=== PATIENT | male | born 1995 ===

== ENCOUNTER 2021-06-07 07:21 | Inpatient (IN) | payer SELFPAY ==
[~2021-06-07] VITALS: Ht 170.2 cm; Wt 111.1 kg
[2021-06-07 08:04] LABS: BASOPHILS ABSOLUTE AUTO 0.01 K/mm3 (0.00-0.23); BASOPHILS PERCENT AUTO 0 % (0-2); EOSINOPHILS PERCENT AUTO 0 % (0-6); Hematocrit 49.2 % (37.0-53.0); Hemoglobin 16.4 g/dL (13.5-17.5); IMMATURE GRAN ABSOLUTE AUTO 0.03 K/mm3 (0.00-0.10); IMMATURE GRAN PERCENT AUTO 0 % (0-1); LYMPHOCYTES ABSOLUTE AUTO 1.51 K/mm3 (0.84-5.20); LYMPHOCYTES PERCENT AUTO 19 % (21-46); MONOCYTES ABSOLUTE AUTO 0.45 K/mm3 (0.16-1.47); MONOCYTES PERCENT AUTO 6 % (4-13); Mean Corpuscular HGB 27.1 pg (26.0-34.0); Mean Corpuscular HGB Conc 33.3 g/dL (31.5-36.5); Mean Corpuscular Volume 81 fL (80-100); Mean Platelet Volume 11.4 fL (9.1-12.4); NEUTROPHILS ABSOLUTE AUTO 5.92 K/mm3 (1.96-9.15); NEUTROPHILS PERCENT AUTO 75 % (41-73); Platelet Count 137 K/mm3 (150-400); RDW Coefficient Variation 12.6 % (11.7-14.2); RDW Standard Deviation 37.5 fL (35.1-46.3); Red Blood Cell Count 6.06 M/mm3 (4.30-5.90); White Blood Cell Count 7.92 K/mm3 (4.00-11.30)
[2021-06-07 08:27] LABS: Alanine Aminotransfer (ALT/SGP 86 U/L (12-78); Albumin, Blood 3.4 g/dL (3.4-5.0); Albumin/Globulin Ratio 0.7 (0.8-1.8); Alk Phos 73 U/L (50-136); Anion Gap 6 mmol/L (6-16); Aspartate Aminotrans (AST/SGOT 53 U/L (12-37); Bilirubin, Total 0.6 mg/dL (0.1-1.0); Blood Urea Nitrogen 13 mg/dL (8-24); Bun/Creatinine Ratio 11.2 (12.0-20.0); CO2, Blood 28 mmol/L (21-32); Calcium, Blood 8.8 mg/dL (8.5-10.1); Chloride, Blood 100 mmol/L (98-108); Creatinine, Blood 1.16 mg/dL (0.60-1.20); Globulin, Blood 4.8 g/dL (2.2-4.0); Glomerular Filtration Rate >60 (60-); Glucose, Blood 113 mg/dL (70-99); Sodium, Blood 134 mmol/L (136-145); Total Protein, Blood 8.2 g/dL (6.4-8.2)
--- NOTE | 2021-06-07 19:32 | NUR ---
SHIFT SUMMARY PT ADMITTED FOR COVID-19. SHORT OF BREATHE AND REQUIRING 2-4 LITERS O2 VIA NC. STAND BY ASSIST DUE TO WORK OF BREATHING. ABLE TO MAKE NEEDS KNOWN. WILL REPORT TO LUKE URIBE.
--- NOTE | 2021-06-08 02:51 | NUR ---
SIGNS AND DISPLAYS SALESPERSON SUMMARY PT A/O X4, SLEPT WELL TONIGHT. DENIES PAIN. CONTINUES TO BE ON 4L O2 VIA NC SATTING IN THE LOW TO MID 90'S. TELE READ SR IN THE HIGH 110'S. NO ACUTE CHANGES, CALL LIGHT WITHIN REACH, WILL CONTINUE TO MONITOR.
[2021-06-08 05:48] LABS: BASOPHILS ABSOLUTE AUTO 0.01 K/mm3 (0.00-0.23); BASOPHILS PERCENT AUTO 0 % (0-2); EOSINOPHILS PERCENT AUTO 0 % (0-6); Hematocrit 48.9 % (37.0-53.0); Hemoglobin 16.1 g/dL (13.5-17.5); IMMATURE GRAN ABSOLUTE AUTO 0.05 K/mm3 (0.00-0.10); IMMATURE GRAN PERCENT AUTO 1 % (0-1); LYMPHOCYTES ABSOLUTE AUTO 1.39 K/mm3 (0.84-5.20); LYMPHOCYTES PERCENT AUTO 14 % (21-46); MONOCYTES ABSOLUTE AUTO 0.61 K/mm3 (0.16-1.47); MONOCYTES PERCENT AUTO 6 % (4-13); Mean Corpuscular HGB 26.8 pg (26.0-34.0); Mean Corpuscular HGB Conc 32.9 g/dL (31.5-36.5); Mean Corpuscular Volume 81 fL (80-100); Mean Platelet Volume 11.7 fL (9.1-12.4); NEUTROPHILS ABSOLUTE AUTO 8.04 K/mm3 (1.96-9.15); NEUTROPHILS PERCENT AUTO 80 % (41-73); Platelet Count 192 K/mm3 (150-400); RDW Coefficient Variation 12.7 % (11.7-14.2); RDW Standard Deviation 37.8 fL (35.1-46.3); Red Blood Cell Count 6.01 M/mm3 (4.30-5.90)
[2021-06-08 06:01] LABS: International Normalized Ratio 1.01; Prothrombin Time Results 10.9 Sec (9.7-11.5)
[2021-06-08 06:17] LABS: Alanine Aminotransfer (ALT/SGP 78 U/L (12-78); Albumin, Blood 3.2 g/dL (3.4-5.0); Albumin/Globulin Ratio 0.6 (0.8-1.8); Alk Phos 67 U/L (50-136); Anion Gap 8 mmol/L (6-16); Aspartate Aminotrans (AST/SGOT 44 U/L (12-37); Bilirubin, Total 0.5 mg/dL (0.1-1.0); Blood Urea Nitrogen 15 mg/dL (8-24); Bun/Creatinine Ratio 16.3 (12.0-20.0); CO2, Blood 25 mmol/L (21-32); Calcium, Blood 9.1 mg/dL (8.5-10.1); Chloride, Blood 103 mmol/L (98-108); Creatinine, Blood 0.92 mg/dL (0.60-1.20); Globulin, Blood 5.1 g/dL (2.2-4.0); Glomerular Filtration Rate >60 (60-); Glucose, Blood 113 mg/dL (70-99); Magnesium, Blood 2.5 mg/dL (1.6-2.4); Potassium, Blood 4.1 mmol/L (3.5-5.5); Sodium, Blood 136 mmol/L (136-145); Total Protein, Blood 8.3 g/dL (6.4-8.2); Troponin I <0.015 ng/mL (0.000-0.040)
--- NOTE | 2021-06-08 08:29 | NUR ---
HR 130'S PER HEMODIALYSIS CHARGE NURSE HEART RATE SUSTAINING IN 130'S FOR SEVERAL HOURS. CALL TO DR. CAMPOS, INSTRUCTED TO INCREASE PATIENT OXYGEN FLOW AND ENCOURAGE PRONING.
--- NOTE | 2021-06-08 18:10 | NUR ---
SHIFT SUMMARY PATIENT MAINTAINING OXYGEN SATURATION AT 92% ON 10L/HI FLOW NC. PATIENT UP INDEPENDENT IN ROOM. ENCOURAGED TO PRONE AND DEEP BREATH. EATING AND DRINKING WELL. PLEASANT AND COOPERATIVE WITH CARE.
--- NOTE | 2021-06-09 04:46 | NUR ---
COMPLIANCE COORDINATOR SUMMARY PT A/O X4, SLEPT WELL TONIGHT. DENIED PAIN. CONTINUES TO BE ON 10L VIA OXYMIZER SATTING IN THE LOW TO MID 90'S. PER [employer] SALES AGENT PT HAS BEEN SR AVG MID 90'S BPM. VSS, NO ACUTE CHANGES. CALL LIGHT WTIHIN REACH, WILL CONTINUE TO MONITOR.
[2021-06-09 06:02] LABS: BASOPHILS ABSOLUTE AUTO 0.01 K/mm3 (0.00-0.23); BASOPHILS PERCENT AUTO 0 % (0-2); EOSINOPHILS PERCENT AUTO 0 % (0-6); Hemoglobin 14.7 g/dL (13.5-17.5); IMMATURE GRAN ABSOLUTE AUTO 0.03 K/mm3 (0.00-0.10); IMMATURE GRAN PERCENT AUTO 0 % (0-1); LYMPHOCYTES ABSOLUTE AUTO 1.06 K/mm3 (0.84-5.20); LYMPHOCYTES PERCENT AUTO 15 % (21-46); MONOCYTES ABSOLUTE AUTO 0.68 K/mm3 (0.16-1.47); MONOCYTES PERCENT AUTO 10 % (4-13); Mean Corpuscular HGB Conc 32.7 g/dL (31.5-36.5); Mean Corpuscular Volume 83 fL (80-100); Mean Platelet Volume 10.8 fL (9.1-12.4); NEUTROPHILS ABSOLUTE AUTO 5.35 K/mm3 (1.96-9.15); NEUTROPHILS PERCENT AUTO 75 % (41-73); Platelet Count 216 K/mm3 (150-400); RDW Coefficient Variation 12.6 % (11.7-14.2); Red Blood Cell Count 5.45 M/mm3 (4.30-5.90); White Blood Cell Count 7.13 K/mm3 (4.00-11.30)
[2021-06-09 06:40] LABS: Alanine Aminotransfer (ALT/SGP 57 U/L (12-78); Albumin, Blood 2.8 g/dL (3.4-5.0); Albumin/Globulin Ratio 0.6 (0.8-1.8); Alk Phos 57 U/L (50-136); Anion Gap 6 mmol/L (6-16); Aspartate Aminotrans (AST/SGOT 29 U/L (12-37); Bilirubin, Total 0.4 mg/dL (0.1-1.0); Blood Urea Nitrogen 18 mg/dL (8-24); CO2, Blood 28 mmol/L (21-32); Calcium, Blood 8.7 mg/dL (8.5-10.1); Chloride, Blood 104 mmol/L (98-108); Creatinine, Blood 0.95 mg/dL (0.60-1.20); Globulin, Blood 4.6 g/dL (2.2-4.0); Glomerular Filtration Rate >60 (60-); Glucose, Blood 109 mg/dL (70-99); Potassium, Blood 4.3 mmol/L (3.5-5.5); Sodium, Blood 138 mmol/L (136-145); Total Protein, Blood 7.4 g/dL (6.4-8.2)
--- NOTE | 2021-06-10 17:42 | NUR ---
SHIFT SUMMARY: TOLERATING WEANING. ON 4L NC AT THIS TIME. INDEP IN ROOM. LAST DOSE OF REMDESIVIR TOMORROW AFTERNOON. HOPING TO GO HOME TOMORROW.
--- NOTE | 2021-06-11 09:00 | NUR ---
HOME O2 EVAL. 88% ON RA AT REST, PULSE 100. 91% ON 1L AT REST, PULSE 107. 3L NC WITH ACTIVITY, 90%, PULSE 115.
[2021-06-11] MEDS ORDERED: ASCO500 PO (12:11)
[2021-06-11] MEDS ORDERED: ACET325 PO (12:11)
[2021-06-11] MEDS ORDERED: AZIT500 PO (12:12)
[2021-06-11] MEDS ORDERED: AZO CRANBERRY PO (12:12)
[2021-06-11] MEDS ORDERED: CEFP200 PO (12:12)
[2021-06-11] MEDS ORDERED: DECADRON6 M2 PO (12:13)
[2021-06-11] MEDS ORDERED: MELATONIN5 M1 PO (12:13)
[2021-06-11] MEDS ORDERED: OMEP20ER PO (12:14)
[2021-06-11] MEDS ORDERED: VITAMIN D31000 UNI1 PO (12:14)
[2021-06-11] MEDS ORDERED: ZINC220 PO (12:15)
== END 2021-06-11 14:08 | disposition home or self-care (01) | DRG 177 ==
LOC: ER 07:21 → MEDS 10:43
PROVIDERS: Emergency Medicine; Family Medicine; ADMIT Family Medicine
PROC: 8E0ZXY6 Isolation (ICD-10-PCS; principal; 2021-06-07)
PROC: XW033E5 Introduction of Remdesivir Anti-infective into Peripheral Vein, Percutaneous Approach, New Technology Group 5 (ICD-10-PCS; 2021-06-07)
PROC: 3E0333Z Introduction of Anti-inflammatory into Peripheral Vein, Percutaneous Approach (ICD-10-PCS; 2021-06-07)
DX: U07.1 COVID-19 (principal); J96.01 Acute respiratory failure with hypoxia; J12.82 Pneumonia due to coronavirus disease 2019; R65.11 Systemic inflammatory response syndrome (SIRS) of non-infectious origin with acute organ dysfunction; E87.1 Hypo-osmolality and hyponatremia; F41.9 Anxiety disorder, unspecified; K21.9 Gastro-esophageal reflux disease without esophagitis; G47.00 Insomnia, unspecified; E66.01 Morbid (severe) obesity due to excess calories; Z68.38 Body mass index [BMI] 38.0-38.9, adult
CPT/HCPCS: 36415; 71045; 71260; 80053; 82947; 83605; 83735; 84145; 84484; 85025; 85379; 85610; 86140; 93005; 93010; 96374-59; 96375-59; 99285-25; A9270; J0696; J1100; J1650; J2060; J2550; J7050; Q9967

== ENCOUNTER 2024-05-25 07:28 | Inpatient (IN) | payer SELFPAY ==
[~2024-05-25] VITALS: Ht 170.2 cm; Wt 116.1 kg
[2024-05-25] VITALS (17 sets, daily range): BP systolic 118–137; BP diastolic 74–93
[~2024-05-25 07:28] MED LIST: ACET325 PO; AMOCLA875 PO; ASCO500 PO; AZIT500 PO; AZO CRANBERRY PO; CEFP200 PO; DECADRON6 M2 PO; MELATONIN5 M1 PO; OMEP20ER PO; VISBIOME 112.51 EACH PO; VITAMIN D31000 UNI1 PO; ZINC220 PO
[2024-05-25] MEDS ORDERED: Ondansetron HCl 2 MG / ML 2ML Vial IV ONE (07:50)
[2024-05-25] MEDS ORDERED: NS 1,000 ML IV SCH ×3 (07:50→11:40)
[2024-05-25] MEDS ORDERED: HYDROmorphone HCl/Pf 1MG SYR IV ONE ×2 (07:50→09:20)
[2024-05-25] MEDS ORDERED: Piperacillin/Tazobactam Sod 4.5 GM in NS 100 ML IV ONE (07:55)
[2024-05-25 08:06] LABS: BASOPHILS ABSOLUTE AUTO 0.03 K/mm3 (0.00-0.23); BASOPHILS PERCENT AUTO 0 % (0-2); EOSINOPHILS ABSOLUTE AUTO 0.11 K/mm3 (0.00-0.68); EOSINOPHILS PERCENT AUTO 1 % (0-6); Hematocrit 48.5 % (37.0-53.0); Hemoglobin 16.2 g/dL (13.5-17.5); IMMATURE GRAN ABSOLUTE AUTO 0.04 K/mm3 (0.00-0.10); IMMATURE GRAN PERCENT AUTO 0 % (0-1); LYMPHOCYTES ABSOLUTE AUTO 2.04 K/mm3 (0.84-5.20); LYMPHOCYTES PERCENT AUTO 15 % (21-46); MONOCYTES ABSOLUTE AUTO 0.63 K/mm3 (0.16-1.47); MONOCYTES PERCENT AUTO 5 % (4-13); Mean Corpuscular HGB 27.3 pg (26.0-34.0); Mean Corpuscular HGB Conc 33.4 g/dL (31.5-36.5); Mean Corpuscular Volume 82 fL (80-100); Mean Platelet Volume 10.2 fL (9.1-12.4); NEUTROPHILS ABSOLUTE AUTO 11.05 K/mm3 (1.96-9.15); NEUTROPHILS PERCENT AUTO 80 % (41-73); Platelet Count 216 K/mm3 (150-400); RDW Standard Deviation 38.2 fL (35.1-46.3); Red Blood Cell Count 5.93 M/mm3 (4.30-5.90)
[2024-05-25 08:31] LABS: Albumin, Blood 4.1 g/dL (3.4-5.0); Bilirubin, Total 0.5 mg/dL (0.1-1.0); Bun/Creatinine Ratio 13.6 (12.0-20.0); Calcium, Blood 9.4 mg/dL (8.5-10.1); Creatinine, Blood 0.88 mg/dL (0.60-1.20); Globulin, Blood 4.3 g/dL (2.2-4.0); Potassium, Blood 3.9 mmol/L (3.5-5.5); Total Protein, Blood 8.4 g/dL (6.4-8.2)
[2024-05-25] MEDS ORDERED: DiphenhydrAMINE HCL 25 MG Cap PO PRN (10:00)
[2024-05-25] MEDS ORDERED: Acetaminophen 325 MG TABLET PO PRN (10:00)
[2024-05-25] MEDS ORDERED: Bisacodyl 10 MG Supp PR PRN (10:00)
[2024-05-25] MEDS ORDERED: Naloxone HCl 0.4MG / ML 1ML Vial IV PRN (10:00)
[2024-05-25] MEDS ORDERED: Magnesium Hydroxide Conc 10 ML UDC PO PRN (10:05)
[2024-05-25] MEDS ORDERED: Ondansetron HCl 2 MG / ML 2ML Vial IV PRN (10:05)
[2024-05-25] MEDS ORDERED: OxyCODONE HCL 5 MG TAB PO PRN (10:05)
[2024-05-25] MEDS ORDERED: Zolpidem Tartrate 5 MG Tab PO PRN (10:05)
[2024-05-25] MEDS ORDERED: Morphine Sulfate 4 MG/1 ML Injection IV PRN (10:05)
[2024-05-25] MEDS ORDERED: Metoclopramide HCl 5MG / ML 2ML Vial IV PRN (10:05)
[2024-05-25] MEDS ORDERED: HYDROmorphone HCl/Pf 1MG SYR IV PRN (13:30)
[2024-05-25] MEDS ORDERED: Lactated Ringer's 1,000 ML IV SCH (13:35)
[2024-05-25] MEDS ORDERED: Bupivacaine 0.5% HCl 5 MG/ML 30MLVIAL ONE (13:53)
[2024-05-25] MEDS ORDERED: Ondansetron HCl 2 MG / ML 2ML Vial ONE (13:59)
[2024-05-25] MEDS ORDERED: Rocuronium Bromide 10 MG/ML 5ML Injection IV ONE ×3 (13:59→16:56)
[2024-05-25] MEDS ORDERED: Dexamethasone Sod Phos 10 MG/ML 1ML VIAL ONE (13:59)
[2024-05-25] MEDS ORDERED: Piperacillin/Tazobactam Sod 4.5 GM in NS 100 ML IV SCH (14:00)
[2024-05-25] MEDS ORDERED: Lidocaine HCl 2% 20 ML MDV ONE (14:00)
[2024-05-25] MEDS ORDERED: Esmolol HCL 10 MG/ML 10ML VIAL ONE (14:00)
[2024-05-25] MEDS ORDERED: Metoprolol Tartrate 5 ML IV ONE (14:03)
--- NOTE | 2024-05-25 14:03 | NUR ---
PT HAS 18G IV TO RIGHT AC THAT FLUSHES WELL. PT ALSO HAS 18G IV TO LEFT FOREARM THAT FLUSHES WELL AND FLOWS TO GRAVITY.
[2024-05-25] MEDS ORDERED: Midazolam HCL 1 MG/ML 5MLVIAL ONE (14:16)
[2024-05-25 14:21] LABS: Base Excess Venous -3.2 mmol/L; PCO2 Venous 39.6 mmHg (38-42); pH Blood Venous 7.36 (7.34-7.37)
--- NOTE | 2024-05-25 14:23 | NUR ---
PERSONAL BELONGINGS PLACED UNDERNEATH GURNEY FOR SAFEKEEPING. PT RING AND PHONE PLACED IN PACU FOR SAFEKEEPING.
[2024-05-25] MEDS ORDERED: Piperacillin/Tazobactam Sod 4.5 GM ONE (14:53)
[2024-05-25] MEDS ORDERED: FentaNYL Citrate 50 MCG/ML 2 ML Injection ONE (15:18)
[2024-05-25] MEDS ORDERED: propofoL 20 ML IV ONE (15:19)
[2024-05-25] MEDS ORDERED: Sugammadex Sodium 200 MG/2ML SDV (100 MG/ML) ONE (16:08)
[2024-05-25] MEDS ORDERED: HYDROmorphone HCl/Pf 1MG SYR ONE ×2 (16:08→16:43)
[2024-05-25] MEDS ORDERED: FentaNYL Citrate 50 MCG/ML 5 ML Injection ONE (16:47)
--- NOTE | 2024-05-25 20:12 | NUR ---
SHIFT/ARRIVAL SUMMARY PT ARRIVED TO THE FLOOR FROM PACU AROUND 1830, POST OP VITALS STARTED, OSTOMY APPLIANCE IN PLACE AND DOES NOT HAVE ANY DRAINAGE, STOMA IS VISIBLE THROUGH THE BAG AND IS RED AND BEEFY LOOKING, MIDLINE NISHA HAS SCANT SPOTTING ON THE INFERIOR SECTION OF IT BUT IS OTHERWISE COMPRESSED, ZORAIDA DRAIN IN PLACE RLQ WITH SMALL AMT OF SS CLOUDY DRAINAGE, DISCUSSED PLAN OF CARE WITH HIM FOCUSING ON CLOSE MONITORING AND POST OP VITALS AND GETTING ORDERED MEDS/TELE GOING FOR HIM. HE IS SOMNOLENT BUT WAKES EASILY TO VERBAL STIMULI, SPOKE WITH THE AND LET HER KNOW HE WAS OUT OF SURGERY AND ON THE UNIT IN HIS ROOM. REPORT GIVEN TO LUKE RN, FLUIDS STARTED AND TELE IN PLACE.
[2024-05-25] MEDS ORDERED: Docusate Sodium 100 MG Cap PO SCH (21:00)
[2024-05-25] MEDS ORDERED: Famotidine 10 MG/ML 2ML Vial IV SCH (21:00)
[2024-05-25] MEDS ORDERED: Lactobacil 2-S.Thermo-Bifido 1 1 Cap PO SCH (21:00)
--- NOTE | 2024-05-26 03:53 | NUR ---
SHIFT SUMMARY NOC. PT POD 1 FOR SIGMOID RESECTION WITH OSTOMY FORMATION. PT A/O X4. PT NPO STATUS. HERNANDEZ PATENT AND DRAINING TO GRAVITY. PT DENIES NEED FOR PAIN MEDICATION AND REPORTS PAIN 3-4/10. MIDLINE NISHA DRESSING HAS SEROSANG DRAINAGE OUTLINED. OSTOMY BEEFY RED WITH NO OUTPUT. ZORAIDA DRAIN PRODUCING SEROSANG DRAINAGE. PT ON TELEMETRY WITH NO REPORTED EVENTS. PT RRESTED WITH EYES CLOSED AND CALL LIGHT IN REACH.
[2024-05-26 04:40] VITALS: BP 128/78
[2024-05-26 05:05] LABS: BASOPHILS ABSOLUTE AUTO 0.03 K/mm3 (0.00-0.23); BASOPHILS PERCENT AUTO 0 % (0-2); EOSINOPHILS ABSOLUTE AUTO 0.01 K/mm3 (0.00-0.68); EOSINOPHILS PERCENT AUTO 0 % (0-6); Hematocrit 42.4 % (37.0-53.0); IMMATURE GRAN ABSOLUTE AUTO 0.15 K/mm3 (0.00-0.10); IMMATURE GRAN PERCENT AUTO 1 % (0-1); LYMPHOCYTES ABSOLUTE AUTO 1.13 K/mm3 (0.84-5.20); LYMPHOCYTES PERCENT AUTO 5 % (21-46); MONOCYTES ABSOLUTE AUTO 0.87 K/mm3 (0.16-1.47); MONOCYTES PERCENT AUTO 4 % (4-13); Mean Corpuscular HGB 27.5 pg (26.0-34.0); Mean Corpuscular Volume 83 fL (80-100); Mean Platelet Volume 10.9 fL (9.1-12.4); NEUTROPHILS ABSOLUTE AUTO 20.07 K/mm3 (1.96-9.15); NEUTROPHILS PERCENT AUTO 90 % (41-73); Platelet Count 153 K/mm3 (150-400); RDW Coefficient Variation 13.3 % (11.7-14.2); RDW Standard Deviation 40.4 fL (35.1-46.3); White Blood Cell Count 22.26 K/mm3 (4.00-11.30)
[2024-05-26 05:28] LABS: Albumin, Blood 2.9 g/dL (3.4-5.0); Albumin/Globulin Ratio 0.8 (0.8-1.8); Bilirubin, Total 1.5 mg/dL (0.1-1.0); Bun/Creatinine Ratio 10.7 (12.0-20.0); Calcium, Blood 8.4 mg/dL (8.5-10.1); Creatinine, Blood 0.93 mg/dL (0.60-1.20); Globulin, Blood 3.6 g/dL (2.2-4.0); Total Protein, Blood 6.5 g/dL (6.4-8.2)
[2024-05-26 05:54] LABS: BAND PERCENT MAN 3 % (0-8); BASOPHILS PERCENT MAN 0 % (0-2); EOSINOPHILS PERCENT MAN 0 % (0-6); LYMPHOCYTES % ATYPICAL MANUAL 1 % (0-0); LYMPHOCYTES ABSOLUTE MAN 1.11 K/mm3 (0.84-5.20); LYMPHOCYTES PERCENT MAN 4 % (21-46); MONOCYTES ABSOLUTE MAN 0.66 K/mm3 (0.16-1.47); MONOCYTES PERCENT MAN 3 % (4-13); NEUTROPHILS ABSOLUTE MAN 20.47 K/mm3 (1.96-9.15); SEG NEUTROPHILS PERCENT MAN 89 % (41-73); TOTAL CELLS COUNTED 100
[2024-05-26 07:09] VITALS: BP 132/92
[2024-05-26 14:18] VITALS: BP 145/96
--- NOTE | 2024-05-26 18:43 | NUR ---
PT HR RANGING 120-130 WHILE PT AT REST AND PAIN MANAGED. PT DENIES CP, FIG CAPRIFIER HARJEET REPORTS NO CHANGE IN RHYTHM. ALL OTHER VSS. DR. LEIVA NOTIFIED AT 11, SEE NEW ORDER FOR INCREASE IN FLUID RATE TO 150ML/HR. RATE INCREASED TO 150ML/HR AT 1130
--- NOTE | 2024-05-26 18:48 | NUR ---
SUMMARY: PT IS POD1 SIGMOID RESECTION WITH OSTOMY. A/O, HR CONTINUES TO RANGE 120-130, DR. LEIVA AWARE. OTHERWISE VSS. SURGICAL SITES WNL, TOTAL OUTPUT FROM ZORAIDA DRAIN 40ML RED DRAINAGE. NO GAS OR STOOL FROM STOMA THIS SHIFT. PT ENCOURAGED TO WALK AND DEEP BREATHE, PT UP TO CHAIR X2. MEDICATED FOR PAIN PER EMAR. PT IS VOIDING AND TOLERATING SMALL SIPS OF CLEAR LIQUIDS, NO N/V. PT FAMILY AT BEDSIDE, CALL LIGHT IN REACH.
[2024-05-26 19:58] VITALS: BP 155/100
[2024-05-26] MEDS ORDERED: OxyCODONE HCL 5 MG TAB PO PRN (20:58)
[2024-05-27 02:41] VITALS: BP 146/97
--- NOTE | 2024-05-27 04:24 | NUR ---
SHIFT SUMMARY PT HAS RESTED OFF AND ON T/O THE NIGHT. PAIN HAS BEEN MANANGED WITH MEDS PER EMAR. SURGICAL SITE WNL, NISHA COMPRESSED. NO STOOL IN OSTOMY YET. PT DENIES PASSING GAS. BOWEL TONES ARE HYPERACTIVE. INTERMITTENT PAIN MANAGED WITH MEDS PER EMAR. TOLERATING PO INTAKE, NO N/V. BED IN LOWEST POSITION, CALL LIGHT WITHIN REACH.
[2024-05-27 04:42] LABS: Hematocrit 43.9 % (37.0-53.0); Hemoglobin 14.4 g/dL (13.5-17.5); Mean Corpuscular HGB 27.4 pg (26.0-34.0); Mean Corpuscular HGB Conc 32.8 g/dL (31.5-36.5); Mean Corpuscular Volume 84 fL (80-100); Mean Platelet Volume 10.9 fL (9.1-12.4); Platelet Count 172 K/mm3 (150-400); RDW Coefficient Variation 13.6 % (11.7-14.2); RDW Standard Deviation 41.7 fL (35.1-46.3); Red Blood Cell Count 5.25 M/mm3 (4.30-5.90); White Blood Cell Count 20.87 K/mm3 (4.00-11.30)
[2024-05-27] MEDS ORDERED: NS 1,000 ML IV SCH (04:55)
[2024-05-27 04:58] LABS: Calcium, Blood 8.8 mg/dL (8.5-10.1); Creatinine, Blood 0.9 mg/dL (0.60-1.20); Potassium, Blood 3.9 mmol/L (3.5-5.5)
[2024-05-27 07:03] VITALS: BP 144/105
[2024-05-27 07:04] VITALS: BP 144/105
[2024-05-27 14:49] VITALS: BP 156/110
--- NOTE | 2024-05-27 15:09 | NUR ---
TRANSFERED CARE OVER TO RONY VILLALOBOS. PT HAS BEEN AOX4 AND COOPERATIVE OF ALL CARE PT IS DOING WELL TRANFERING AND IS ABLE TO AMBULATE INTO BOWMAN WITH WALKER. PT IS NPO PER DR STEPHEN AND HAS BEEN BURPING THROUGHOUT THE DAY. COLOSTOMY BAG INTACT STOMA LOOKING GOOD. PT HAD HIGHER BP AND TACHY HR AND DR LEIVA WAS MADE AWARE. DR LEIVA FEELS IT IS PAIN RELATED AND IS MONITORING. TELE DC PER DR LEIVA. PT TREATED FOR ABD PAIN PER EMAJoann. ZORAIDA DRAIN WORKING WELL.
--- NOTE | 2024-05-27 15:22 | NUR ---
ASSUMED CARE OF PATIENT AT THIS TIME. PT AMBULATING IN HALLWAY WITH WALKER.
[2024-05-27 19:23] VITALS: BP 138/83
--- NOTE | 2024-05-28 05:12 | NUR ---
SHIFT SUMMARY SAMANTHA WAS ALERT AND ORIENTED ON ASSESMENT. PT PAIN WELL CONTROLLED, OSTOMY PRODUCING SANGUINEOUS LIQUID, NO GAS YET. INSCISION SITE C/D/I. NO NEW COMPLAINTS, NO CHANGES TO PT CONDITION NO ACUTE EVENTS.
[2024-05-28 05:55] VITALS: BP 113/83
[2024-05-28 07:21] VITALS: BP 133/95
[2024-05-28 08:03] LABS: BASOPHILS ABSOLUTE AUTO 0.03 K/mm3 (0.00-0.23); BASOPHILS PERCENT AUTO 0 % (0-2); EOSINOPHILS ABSOLUTE AUTO 0.16 K/mm3 (0.00-0.68); EOSINOPHILS PERCENT AUTO 1 % (0-6); Hematocrit 41.6 % (37.0-53.0); Hemoglobin 13.6 g/dL (13.5-17.5); IMMATURE GRAN ABSOLUTE AUTO 0.06 K/mm3 (0.00-0.10); IMMATURE GRAN PERCENT AUTO 1 % (0-1); LYMPHOCYTES ABSOLUTE AUTO 1.62 K/mm3 (0.84-5.20); LYMPHOCYTES PERCENT AUTO 14 % (21-46); MONOCYTES ABSOLUTE AUTO 0.89 K/mm3 (0.16-1.47); MONOCYTES PERCENT AUTO 8 % (4-13); Mean Corpuscular HGB 27.4 pg (26.0-34.0); Mean Corpuscular HGB Conc 32.7 g/dL (31.5-36.5); Mean Corpuscular Volume 84 fL (80-100); Mean Platelet Volume 10.7 fL (9.1-12.4); NEUTROPHILS ABSOLUTE AUTO 9.02 K/mm3 (1.96-9.15); NEUTROPHILS PERCENT AUTO 76 % (41-73); Platelet Count 167 K/mm3 (150-400); RDW Coefficient Variation 13.3 % (11.7-14.2); RDW Standard Deviation 40.8 fL (35.1-46.3); Red Blood Cell Count 4.97 M/mm3 (4.30-5.90); White Blood Cell Count 11.78 K/mm3 (4.00-11.30)
[2024-05-28 08:51] LABS: Bun/Creatinine Ratio 8.3 (12.0-20.0); Calcium, Blood 8.8 mg/dL (8.5-10.1); Creatinine, Blood 0.85 mg/dL (0.60-1.20); Potassium, Blood 3.7 mmol/L (3.5-5.5)
--- NOTE | 2024-05-28 11:31 | NUR ---
DR. CERVANTES ROUNDED AT APPROXIMATELY 0815.
[2024-05-28 14:59] VITALS: BP 139/94
[2024-05-28 19:13] VITALS: BP 138/92
--- NOTE | 2024-05-28 19:38 | NUR ---
SHIFT SUMMARY PT IS POD#3. PAIN MANAGED WITH OXYCODONE AND TYLENOL. PT HAS BEEN AMBULATING INDEPENDENTLY IN THE HALWAYS. NO OSTOMY OUTPUT, BOWEL SOUNDS HYPOACTIVE. PT DENIES NAUSEA. ABD HAS BEEN DISTENDED T/O THE DAY. PT'S WAS PRESENT T/O THE DAY FOR SUPPORT. PT USES HIS CALL LIGHT APPROPRIATELY.
[2024-05-29 03:19] VITALS: BP 127/88
--- NOTE | 2024-05-29 04:22 | NUR ---
SHIFT SUMMARY SAMANTHA WAS ALERT AND FULLY ORIENTED ON ASSESSMENT. ABD APPEARS DISTENDED, PT STATES IT FEELS NORMAL TO HIM. PT DENYING PAIN. UP TO AMBULATE TO ELEVATOR AND GO TO BR. STILL NO FLATUS OR STOOL IN BAG. NO ACUTE EVENTS OR CHANGES TO PT CONDITION TONIGHT.
[2024-05-29 07:11] VITALS: BP 143/88
[2024-05-29 14:37] VITALS: BP 166/95
--- NOTE | 2024-05-29 17:42 | NUR ---
SHIFT SUMMARY POD4 EX LAP/JULI/ABSCESS DRAINAGE/SMALL AND COLONIC BOWEL SUTURE REPAIR/NEW OSTOMY FORMATION, A/OX4, VSS, TOLERATIN SIPS/CHIPS, ZORAIDA DRAIN PUTTING OUT SS DRAINAGE, MIDLINE DRESSING HAS SMALL AMOUNT OF DRAINAGE NOTED ON IT AND IS COMPRESSED AND INTAT, AMBULATED IN THE HALLS TWICE THIS SHIFT, PAIN WELL MANAGED. NO ACUTE EVENTS THIS SHIFT, CALL LIGHT IN REACH.
[2024-05-29 19:29] VITALS: BP 138/99
[2024-05-30 04:20] VITALS: BP 141/98
[2024-05-30 04:28] LABS: Hematocrit 42.4 % (37.0-53.0); Hemoglobin 13.8 g/dL (13.5-17.5); Mean Corpuscular HGB 26.9 pg (26.0-34.0); Mean Corpuscular HGB Conc 32.5 g/dL (31.5-36.5); Mean Corpuscular Volume 83 fL (80-100); Mean Platelet Volume 10.3 fL (9.1-12.4); Platelet Count 188 K/mm3 (150-400); RDW Coefficient Variation 12.8 % (11.7-14.2); RDW Standard Deviation 38.7 fL (35.1-46.3); Red Blood Cell Count 5.13 M/mm3 (4.30-5.90); White Blood Cell Count 8.14 K/mm3 (4.00-11.30)
[2024-05-30 04:49] LABS: Bun/Creatinine Ratio 10.5 (12.0-20.0); Calcium, Blood 9.2 mg/dL (8.5-10.1); Creatinine, Blood 0.85 mg/dL (0.60-1.20); Potassium, Blood 4.1 mmol/L (3.5-5.5)
--- NOTE | 2024-05-30 05:40 | NUR ---
SHIFT SUMMARY SAMANTHA WAS A/0 X 4 ON ASSESMENT. PT OSTOMY FINALLY BEGAN OUTPUTTING WATTERY STOOL THIS SHIFT. PT HAD EPISODE OF N/V IN EARLY AM, MEDICATED PER EMAR NO FURTHER EMESIS. PT PAIN WELL CONTROLLED. SURGICAL SITE C/D/I, ZORAIDA DRAIN OUTPUTTING SEROSANG.
[2024-05-30 07:16] VITALS: BP 154/103
[2024-05-30 15:07] VITALS: BP 146/99
--- NOTE | 2024-05-30 17:37 | NUR ---
SHIFT SUMMARY POD5 EXLAP WITH JULI/ABSCESS DRAINAGE, COLONIC SUTURE REPAIR AND NEW OTOMY FORMATION, A/OX4, VSS, TOLERATING SIPS, PAIN MEDICATIED WITH TYLENOL 1X THIS SHIFT, AMBULATED 2X IN THE HALLS, SMALL AMT OF OSTOMY OUTPUT. DENIES N/V. NO ACUTE EVENTS THIS SHIFT, CALL LIGHT IN REACH.
[2024-05-30 19:28] VITALS: BP 150/93
[2024-05-31 04:29] VITALS: BP 137/93
[2024-05-31] MEDS ORDERED: NS 100 ML IV ONE ×4 (05:01→23:08)
[2024-05-31] MEDS ORDERED: Piperacillin/Tazobactam Sod 4.5 GM ONE ×4 (05:01→23:08)
--- NOTE | 2024-05-31 06:18 | NUR ---
SHIFT SUMMARY NO ACUTE CHANGES TO REPORT OVERNIGHT. PT HAS RESTED T/O THE NIGHT. PT DENIES PAIN. INDEPENDENT IN THE ROOM. IVF INFUSING. NO N/V. SURGICAL SITE WNL. BED IN LOWEST POSITION, CALL LIGHT WITHIN REACH.
[2024-05-31 07:04] VITALS: BP 134/91
[2024-05-31 14:30] VITALS: BP 127/89
--- NOTE | 2024-05-31 17:07 | NUR ---
SUMMARY NO ACUTE CHANGES T/O SHIFT. PT WAS ADVANCED TO FIBER RESTRICTED DIET FOR LUNCH. ADVISED PT TO TAKE SLOWLY, PT TOOK FEW BITES OF EACH ITEM. HAS REPORTED OCCASIONAL CRAMPING PAIN BUT HAS NOT REQUIRED PAIN MEDICATION THUS FAR THIS SHIFT. PT INDEPENDENT, HAS AMBULATED MULTIPLE TIMES IN BOWMAN AND SAT UP IN CHAIR. SHOWED PT HOW TO BURP OSTOMY, PT ASKED QUESTIONS AND OBSERVED DURING PROCESS. PLEASANT AND COOPERATIVE.
[2024-05-31 22:35] VITALS: BP 125/81
[2024-06-01 04:29] VITALS: BP 129/92
[2024-06-01] MEDS ORDERED: NS 100 ML IV ONE ×3 (05:51→18:13)
[2024-06-01] MEDS ORDERED: Piperacillin/Tazobactam Sod 4.5 GM ONE ×3 (05:51→18:13)
--- NOTE | 2024-06-01 06:48 | NUR ---
SHIFT SUMMARY NOC. PT POD 6 FOR COLECTOMY WITH OSTOMY. PT DENIES PAIN OR NAUSEA THIS SHIFT. PT TOLERATING SMALL AMOUNTS OF PO INTAKE AND VOIDING URINE. ZORAIDA DRAIN PRODUCING MINIMAL OUTPUT. OSTOMY PRODUCING LIQUID GREEN/BROWN OUTPUT. EDUCATION PROVIDED. PT RESTED WITH EYES CLOSED AND CALL LIGHT IN REACH.
[2024-06-01 07:01] VITALS: BP 140/95
[2024-06-01 13:42] LABS: Bun/Creatinine Ratio 10.8 (12.0-20.0); Calcium, Blood 9.5 mg/dL (8.5-10.1); Creatinine, Blood 1.02 mg/dL (0.60-1.20); Potassium, Blood 4.1 mmol/L (3.5-5.5)
[2024-06-01 15:11] VITALS: BP 134/91
--- NOTE | 2024-06-01 18:06 | NUR ---
DC'D NISHA DRESSING AND ZORAIDA DRAIN PER ORDERS. PLACED GAUZE AND TEGADERM OVER ZORAIDA DRAIN SITE. PLACED MEDIPORE DRESSING OVER MIDLINE INCISION. PT TOLERATED WELL. NOW RESTING IN BED, CALL LIGHT IN REACH.
[2024-06-01 19:58] VITALS: BP 125/80
[2024-06-02] MEDS ORDERED: Piperacillin/Tazobactam Sod 4.5 GM ONE ×2 (00:18→04:51)
[2024-06-02] MEDS ORDERED: NS 100 ML IV ONE ×3 (00:18→12:07)
[2024-06-02 04:51] VITALS: BP 118/87
[2024-06-02 07:00] VITALS: BP 119/84
--- NOTE | 2024-06-02 07:22 | NUR ---
SHIFT SUMMARY NOC. PT POD 7 FOR COLECTOMY WITH OSTOMY. PT DENIES PAIN OR NAUSEA THIS SHIFT. PT TOLERATING PO INTAKE AND VOIDING URINE. MIDLINE MEDIPORE DRESSING C/D/I WITH SCANT SEROSANG DRAINAGE. GAUZE WITH TEGADERM OVER PULLED ZORAIDA DRAIN SITE. OSTOMY IS BEEFY RED AND PRODUCING OUTPUT. PT PARTICIPATING IN OSTOMY CARE AND ENGAGED WITH TEACHING. PT RESTED WITH EYES CLOSED AND CALL LIGHT IN REACH.
[2024-06-02] MEDS ORDERED: OXYC5 PO (10:07)
[2024-06-02] MEDS ORDERED: Ampicillin Sod/Sulbactam Sod 3 GM in NS 100 ML IV SCH (12:00)
[2024-06-02] MEDS ORDERED: Ampicillin Sod/Sulbactam Sod 3 GM ONE (12:07)
[2024-06-02] MEDS ORDERED: DOCU100 PO (12:09)
--- NOTE | 2024-06-02 13:40 | NUR ---
DISCHARGE UPDATE DISCHARGE PACKET GONE OVER WITH PT AND PT SIGNIFICANT OTHER AT 1310. PT DISCHARGED AT 1340, PT REFUSED WHEELCHAIR. DISCHARGE PACKET IN BAG ALONG WITH PT'S PERSONAL BELONGINGS AND WITH SIGNIFICANT OTHER AT TIME OF DISCHARGE. OSTOMY SUPPLIES PROVIDED TO PT.
== END 2024-06-02 13:37 | disposition home or self-care (01) | DRG 853 ==
LOC: ER 07:28 → SURS 09:56
PROVIDERS: Anesthesiology; Emergency Medicine; Internal Medicine; Surgery; ADMIT Hospitalist
PROC: 0DQ80ZZ Repair Small Intestine, Open Approach (ICD-10-PCS; 2024-05-25)
PROC: 3E03329 Introduction of Other Anti-infective into Peripheral Vein, Percutaneous Approach (ICD-10-PCS; 2024-05-25)
PROC: 0DBN0ZZ Excision of Sigmoid Colon, Open Approach (ICD-10-PCS; principal; 2024-05-25 14:30)
PROC: 0D1N0Z4 Bypass Sigmoid Colon to Cutaneous, Open Approach (ICD-10-PCS; 2024-05-25 14:30)
PROC: 0W9G0ZZ Drainage of Peritoneal Cavity, Open Approach (ICD-10-PCS; 2024-05-25 14:30)
DX: A41.9 Sepsis, unspecified organism (principal); K65.0 Generalized (acute) peritonitis; K65.1 Peritoneal abscess; K57.20 Diverticulitis of large intestine with perforation and abscess without bleeding; Z68.41 Body mass index [BMI] 40.0-44.9, adult; E66.9 Obesity, unspecified; Z79.899 Other long term (current) drug therapy; Z79.2 Long term (current) use of antibiotics; R65.20 Severe sepsis without septic shock; Z87.09 Personal history of other diseases of the respiratory system
CPT/HCPCS: 36415; 74177; 80048; 80053; 82803; 83605; 83735; 84443; 85025; 85027; 86141; 86850; 86900; 86901; 87040; 87076; 87185; 88307; 93005; 93010; 94760; 94762; 96361; 96365-59; 96375; 96376; 99285-25; A9270; J0295; J1100; J1170; J2250; J2405; J2543; J2704; J3010; J7030; J7120; Q9967

== ENCOUNTER 2025-04-24 07:49 | Day surgery (SDC) | payer SELFPAY ==
[~2025-04-24] VITALS: Ht 170.2 cm; Wt 79.9 kg
[~2025-04-24 07:49] MED LIST changes: +DOCU100 PO; +OXYC5 PO
[2025-04-24 10:18] VITALS: BP 114/91
== END 2025-04-24 10:34 | disposition home or self-care (01) ==
LOC: ORSCSDS 07:49
PROVIDERS: Surgery
PROC: 0DBE8ZX Excision of Large Intestine, Via Natural or Artificial Opening Endoscopic, Diagnostic (ICD-10-PCS; principal; 2025-04-24 09:15)
PROC: 0DJD8ZZ Inspection of Lower Intestinal Tract, Via Natural or Artificial Opening Endoscopic (ICD-10-PCS; principal; 2025-04-24 09:15)
DX: Z93.3 Colostomy status (principal); Z12.11 Encounter for screening for malignant neoplasm of colon; K57.30 Diverticulosis of large intestine without perforation or abscess without bleeding; K63.89 Other specified diseases of intestine; E66.9 Obesity, unspecified; Z68.32 Body mass index [BMI] 32.0-32.9, adult; Z79.899 Other long term (current) drug therapy
CPT/HCPCS: 88305; J2704; J7120